=== PATIENT | male | born 1950 | race Caucasian/White ===

== ENCOUNTER → 2017-04-06 | Outpatient (CLI) | payer MEDICARE, OTHER, BC | LOC: MHCPAIN 08:46 | DX: G89.29 Other chronic pain (principal); M48.061 Spinal stenosis, lumbar region without neurogenic claudication; M47.814 Spondylosis without myelopathy or radiculopathy, thoracic region; M53.3 Sacrococcygeal disorders, not elsewhere classified | CPT/HCPCS: G0463 ==

== ENCOUNTER → 2017-04-29 | Outpatient (CLI) | payer MEDICARE, OTHER, BC | LOC: MHCPAIN 07:33 | DX: M47.817 Spondylosis without myelopathy or radiculopathy, lumbosacral region (principal); M46.96 Unspecified inflammatory spondylopathy, lumbar region | CPT/HCPCS: J1040; Q9967 ==

== ENCOUNTER → 2017-06-07 | Outpatient (CLI) | payer MEDICARE, OTHER | LOC: MHCPAIN 08:00 | DX: G89.29 Other chronic pain (principal); M47.817 Spondylosis without myelopathy or radiculopathy, lumbosacral region; M53.3 Sacrococcygeal disorders, not elsewhere classified | CPT/HCPCS: G0463 ==

== ENCOUNTER → 2017-06-08 | Outpatient (CLI) | payer MEDICARE, OTHER | LOC: MHCPAIN 11:15 | DX: G57.01 Lesion of sciatic nerve, right lower limb (principal) | CPT/HCPCS: J1040 ==

== ENCOUNTER → 2017-06-17 | Outpatient (CLI) | payer MEDICARE, OTHER | LOC: COL.VAS 12:09 | DX: I87.2 Venous insufficiency (chronic) (peripheral) (principal) ==

== ENCOUNTER → 2017-07-14 | Outpatient (CLI) | payer MEDICARE, OTHER ==
[~2017-07-14] MED LIST: LIORESAL 1010 MG/TAB PO; MONODOX100 PO; NAPROSYN500 MG PO; XANAX .25M0.25 MG/TA PO
== END ==
LOC: MHCPAIN 07:51
DX: G89.29 Other chronic pain (principal); M47.817 Spondylosis without myelopathy or radiculopathy, lumbosacral region; M53.3 Sacrococcygeal disorders, not elsewhere classified; G57.01 Lesion of sciatic nerve, right lower limb
CPT/HCPCS: G0463

== ENCOUNTER → 2017-07-15 | Outpatient (CLI) | payer MEDICARE, OTHER | LOC: COL.VAS 07-12 09:00 | DX: I87.2 Venous insufficiency (chronic) (peripheral) (principal); Z98.890 Other specified postprocedural states ==

== ENCOUNTER → 2017-09-27 | Outpatient (CLI) | payer MEDICARE, OTHER | LOC: MHCPAIN 10:30 | DX: G89.29 Other chronic pain (principal); M47.817 Spondylosis without myelopathy or radiculopathy, lumbosacral region; M54.16 Radiculopathy, lumbar region; M53.3 Sacrococcygeal disorders, not elsewhere classified | CPT/HCPCS: G0463 ==

== ENCOUNTER → 2017-09-30 | Outpatient (CLI) | payer MEDICARE, OTHER | LOC: MHCPAIN 07:35 | DX: M54.5 Low back pain (principal); M47.817 Spondylosis without myelopathy or radiculopathy, lumbosacral region | CPT/HCPCS: J1040; Q9967 ==

== ENCOUNTER 2023-08-06 13:08 | Inpatient (IN) | payer MEDICARE, OTHER ==
[~2023-08-06] VITALS: Ht 15.2 cm; Wt 67.4 kg
[2023-08-06] MEDS ORDERED: LORazepam 2 MG/ML 1 ML VIAL IV ONE (13:45)
[2023-08-06 14:26] LABS: BASO % 0.3 % (0.0-2.0); EOS # 0.1 K/mm3 (0.0-0.7); EOS % 1.5 % (0.0-4.0); GRAN # 5.3 K/mm3 (1.4-6.5); GRAN % 73.5 % (42.2-75.2); LYMPH # 1.1 K/mm3 (1.2-3.4); LYMPH % 15.2 % (20.0-51.0); MEAN CELL VOLUME 87 fl (80.0-100.0); MEAN CORPUSCULAR HEMOGLOBIN 30 pg (27-31); MEAN CORPUSCULAR HGB CONC 34 g/dl (33.0-37.0); MEAN PLATELET VOLUME 11.8 fl (7.4-10.4); MONO # 0.7 K/mm3 (0.1-0.6); MONO % 9.2 % (1.7-9.3); PLATELET COUNT 152 K/mm3 (130-400); RED BLOOD COUNT 5.99 M/mm3 (4.20-5.60); REDCELL DISTRIBUTION WIDTH-CV 13.3 % (11.5-14.5)
[2023-08-06 14:27] LABS: HEMATOCRIT 52.3 % (42.0-52.0)
[2023-08-06 14:38] LABS: ALBUMIN 3.9 g/dL (3.4-4.8); BILIRUBIN,TOTAL 0.6 mg/dL (0.2-1.2); C-REACTIVE PROTEIN 0.41 mg/dL (0.00-0.50); CALCIUM 11.3 mg/dL (8.4-10.2); CREATININE, serum 1.33 mg/dL (0.72-1.25)
[2023-08-06] MEDS ORDERED: COMPAZINE 110 MG/TAB PO (15:10)
[2023-08-06] MEDS ORDERED: TORADOL 10MG TA10 MG PO (15:11)
[2023-08-06] MEDS ORDERED: CLEOCIN HCL300 MG PO (15:12)
[2023-08-06] MEDS ORDERED: NORCO 325 MG-51 TAB PO (15:12)
[2023-08-06] MEDS ORDERED: BACTROBAN 22GM22 GM TP (15:13)
[2023-08-06] MEDS ORDERED: BACTRIM DS 8001 TAB PO (15:13)
[2023-08-06] MEDS ORDERED: *Potassium Replacement Protocol MC SCH (16:45)
[2023-08-06 17:57] VITALS: BP 158/83; PULSE 67; TEMP 97.2
[2023-08-06 17:58] VITALS: BP_SYST 158
--- NOTE | 2023-08-06 17:58 | NUR ---
PATIENT BROUGHT TO FLOOR AT APPROXIMATELY 1700. PATIENT REPORTS MILD PAIN, DENIES NEED FOR PAIN MEDICATION AT THIS TIME. INTAKE COMPLETE. PATIENT REPORTS BEING ON PO BACTRIM AND CLINDAMYCIN. IV TO LEFT AC INT. IV MAG AND IV ZOSYN ORDERED. PATIENT ON RA. ORTHO CONSULTED, [facility]. WAITING ON [facility] TO ARRIVE FOR MED ORDERS (PAIN/NAUSEA/SLEEP AID). NO FURTHER NEEDS. CALL LIGHT IN REACH.
[2023-08-06] MEDS ORDERED: oxyCODONE 5 MG TAB PO PRN (18:45)
[2023-08-06] MEDS ORDERED: Morphine 4 MG/ML VIAL IV PRN ×2 (18:45)
[2023-08-06 19:27] VITALS: BP 134/80; PULSE 77; TEMP 97.6
[2023-08-06 19:36] VITALS: BP 134/80
--- NOTE | 2023-08-06 19:47 | NUR ---
Patient assessed at this time, see shift assessment, A/Ox4, reports pain to bilateral toes, PS of 6/10 when he moves, medicated with oxycodone, INT to left antecubital infusing well, denies further needs, call light and personal items within reach, will continue to monitor.
[2023-08-06 21:00] VITALS: BP_SYST 134
[2023-08-06] MEDS ORDERED: Heparin 5,000 UNITS/ML 1 ML VIAL SQ SCH (21:00)
[2023-08-06] MEDS ORDERED: Melatonin 3 MG TAB PO SCH (21:00)
[2023-08-06 23:45] VITALS: BP 103/67; PULSE 75; TEMP 98.3
[2023-08-07 01:12] VITALS: BP_SYST 103
[2023-08-07 03:44] VITALS: BP 114/73; PULSE 72; TEMP 97.6
[2023-08-07 04:08] VITALS: BP_SYST 114
--- NOTE | 2023-08-07 06:32 | NUR ---
Patient reports minimal pain at this time, wanted to take his oxycodone after breakfast, denies further needs.
[2023-08-07 06:41] LABS: BASO % 0.3 % (0.0-2.0); EOS # 0.2 K/mm3 (0.0-0.7); EOS % 2.8 % (0.0-4.0); GRAN # 3.9 K/mm3 (1.4-6.5); GRAN % 59.2 % (42.2-75.2); HEMATOCRIT 49.7 % (42.0-52.0); HEMOGLOBIN 17.1 g/dl (13.5-18.0); LYMPH # 1.5 K/mm3 (1.2-3.4); LYMPH % 23.5 % (20.0-51.0); MEAN CELL VOLUME 87 fl (80.0-100.0); MEAN CORPUSCULAR HEMOGLOBIN 30 pg (27-31); MEAN CORPUSCULAR HGB CONC 34 g/dl (33.0-37.0); MEAN PLATELET VOLUME 11.4 fl (7.4-10.4); MONO # 0.9 K/mm3 (0.1-0.6); MONO % 13.9 % (1.7-9.3); PLATELET COUNT 192 K/mm3 (130-400); RED BLOOD COUNT 5.72 M/mm3 (4.20-5.60); REDCELL DISTRIBUTION WIDTH-CV 13.2 % (11.5-14.5)
[2023-08-07 07:15] LABS: ALBUMIN 3.5 g/dL (3.4-4.8); CALCIUM 10.9 mg/dL (8.4-10.2); CREATININE, serum 1.37 mg/dL (0.72-1.25); MAGNESIUM 1.9 mg/dL (1.6-2.6); PHOSPHOROUS 3.2 mg/dL (2.3-4.7)
[2023-08-07 07:58] VITALS: BP 122/79; PULSE 68; TEMP 97.4
[2023-08-07 08:15] VITALS: BP_SYST 122
--- NOTE | 2023-08-07 08:20 | NUR ---
Patient did well with breakfast. at bedside. Requesting PRN pain medication for 08/29/09 pain. He worked with therapy this am. Pain significantly increased with activity. Ortho rounding, awaiting consult for plan of care. IV antibioitcs as ordered. Will monitor
[2023-08-07] MEDS ORDERED: CEPHALEXIN500 M1 PO (09:42)
--- NOTE | 2023-08-07 10:16 | NUR ---
donation worker met with pt and his , Hemalatha [phone] to discuss discharge planning. Pt reports he lives with his in [place]. He sees Dr. Deluna for PCP needs and obtains medications from [facility] with no difficulties. He reports to be independent with ADLS and uses a borrowed FWW from [facility]. He has a [facility]PO[facility] listing his . They will work to bring in a copy as this is important to him he reports. Pt intends to return home upon discharge. Discharge Plan: home
[2023-08-07 11:16] VITALS: BP 123/76; PULSE 75; TEMP 97.5
--- NOTE | 2023-08-07 11:49 | NUR ---
Patient ready for discharge. All discharge education reviewed. He is aware of script to [facility] to [facility]ler helper. Iv zosyn completed and IV DC. He is aware to call wednesday for follow up appt. with ortho and to keep PCP appt. Post op shoes given to patient per ortho to see if that helps with discomfort. Patient thankful for cares given and ready to DC home. taking him and they both deny questions and or concerns.
--- NOTE | 2023-08-07 11:59 | NUR ---
Data: Patient and his accepted Grease Remover visit offered during Grease Remover rounds. 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 was sewing/stuffing cloth dolls during the visit. Both were interested in discussing srinivasa traditions; helpful scriptures; and Grease Remover training experiences. Patient expected to discharge today. [employer] Technician visited during Grease Remover visit. Doctor visit followed Grease Remover visit. Assessment: Grateful for the healing that has occurred and positive about the recovery ahead. Plan of Care: Grease Remover offered theological/ministry discussion for Patient and ; supportive listening; and prayer. Patient and expressed their appreciation for the visit.
== END 2023-08-07 11:55 | disposition home or self-care (01) | DRG 603 ==
LOC: COL.ER 13:08 → SURG 15:42
PROVIDERS: Family Medicine; ADMIT Internal Medicine
DX: L03.032 Cellulitis of left toe (principal); L03.031 Cellulitis of right toe
CPT/HCPCS: J1644; J2060; J2543; J3475